=== PATIENT | female | born 2005 | race Caucasian/White ===

== ENCOUNTER 2024-03-22 16:00 | Emergency (ER) | payer MEDICAID, BC ==
[~2024-03-22] VITALS: Ht 162.6 cm; Wt 66.0 kg
[2024-03-22 16:01] VITALS: BP 129/89; PULSE 100; RESP 18; TEMP 98.6; O2SAT 98
[2024-03-22 16:50] LABS: BASOPHILS % (AUTO) 1.2 % (0-1); EOSINOPHILS # (AUTO) 0.2 X10'3 (0-0.9); HEMATOCRIT 36.4 % (35.0-45.0); LYMPHOCYTES # (AUTO) 1.1 X10'3 (1.1-4.8); LYMPHOCYTES % (AUTO) 44.2 % (21-51); MEAN CORPUSCULAR HEMOGLOBIN 27.6 PG (27.0-31.0); MEAN CORPUSCULAR VOLUME 83.7 FL (78-98); MEAN PLATELET VOLUME 8.2 FL (7.4-10.4); MONOCYTES # (AUTO) 0.5 X10'3 (0-0.9); MONOCYTES % (AUTO) 17.8 % (2-12); NEUTROPHILS # (AUTO) 0.8 X10'3 (1.8-7.7); NEUTROPHILS % (AUTO) 30.8 % (42-75); PLATELET COUNT 182 X10'3 (140-440); RED BLOOD COUNT 4.35 X10'6 (4.20-5.60); RED CELL DISTRIBUTION WIDTH 16.3 % (11.5-14.5); WHITE BLOOD COUNT 2.6 X10'3 (4.5-11.0)
[2024-03-22 16:57] LABS: BILIRUBIN,URINE NEGATIVE (Neg); CLARITY,URINE SLIGHTLY CLOUDY (Clear); COLOR,URINE YELLOW (Yellow); GLUCOSE, URINE NEGATIVE (Neg); KETONES,URINE TRACE mg/dl (Neg); LEUKOCYTE ESTERASE ,URINE NEGATIVE (Neg); NITRITES, URINE NEGATIVE (Neg); OCCULT BLOOD,URINE TRACE-INTACT (Neg); PROTEIN,URINE NEGATIVE (Neg); UROBILINOGEN,URINE 0.2 E.U/dL (0.2-1.0)
[2024-03-22 16:58] LABS: UA COLLECTION TYPE CLN CATCH MIDSTREAM
[2024-03-22 17:02] LABS: HCG SERUM QL NEGATIVE
[2024-03-22 17:06] LABS: APTT 28 SECONDS (22-32); INR 1.1 INR; PROTHROMBIN TIME 12.1 SECONDS (9.0-12.0)
[2024-03-22 17:13] LABS: ALANINE AMINOTRANSFERASE 11 U/L (12-78); ALBUMIN 4.2 G/DL (3.4-5.0); ALKALINE PHOSPHATASE 98 IU/L (20-180); ANION GAP 8 (8-16); ASPARTATE AMINO TRANSFERASE 14 U/L (10-37); BILIRUBIN,TOTAL 0.6 MG/DL (0.1-1.0); BLOOD UREA NITROGEN 19 MG/DL (7-18); BUN/CREATININE RATIO 32.8 (10.0-20.0); CHLORIDE 104 MMOL/L (99-107); CREATININE 0.58 MG/DL (0.40-0.90); GLUCOSE 88 MG/DL (70-104); POTASSIUM 3.7 MMOL/L (3.5-5.1); SODIUM 138 MMOL/L (135-145); TOTAL PROTEIN 8.3 G/DL (6.4-8.2); eCRCL 134 ML/MIN; eGFR > 90 ML/MIN
[2024-03-22 17:15] LABS: BACTERIA,URINE FEW /HPF (Neg); CAL OXALATE CRYSTALS 2+ /HPF (NEGATIVE); MUCUS STRANDS MODERATE /LPF (Neg); SQUAMOUS EPITHELIAL CELL,UR MANY /LPF (FEW); WBC,URINE 0-4 /HPF (0-4)
[2024-03-22 17:32] LABS: TOTAL CELLS COUNTED 100
[2024-03-22 17:33] LABS: ANISOCYTOSIS 1+; PLATELET ESTIMATE NORMAL
== END 2024-03-22 18:15 | disposition home or self-care (01) ==
LOC: ER 16:01
DX: N93.9 Abnormal uterine and vaginal bleeding, unspecified (principal); D72.819 Decreased white blood cell count, unspecified; R79.1 Abnormal coagulation profile
CPT/HCPCS: 36415; 80053; 81001; 84703; 85007; 85025; 85610; 85730; 99284

== ENCOUNTER 2024-11-18 20:08 | Emergency (ER) | payer BC, MEDICAID ==
[~2024-11-18] VITALS: Ht 170.2 cm; Wt 56.9 kg
[2024-11-19] MEDS ORDERED: CIPR2.5D21 EACHEYE (00:02)
[2024-11-19] MEDS: ciprofloxacin 0.3% 2.5ml ophthalmic solution LEFTEYE ONE (00:09)
[2024-11-19 00:15] VITALS: BP 114/78; PULSE 84; RESP 18; TEMP 98.6; O2SAT 99
== END 2024-11-19 00:16 | disposition home or self-care (01) ==
LOC: ER 20:09
DX: H10.89 Other conjunctivitis (principal); B96.89 Other specified bacterial agents as the cause of diseases classified elsewhere
CPT/HCPCS: 99283